=== PATIENT | male | born 1995 | race Two or more races ===

== ENCOUNTER 2018-06-09 17:36 | Emergency (ER) | payer MEDICAID ==
[~2018-06-09] VITALS: Ht 185.4 cm; Wt 131.5 kg
[2018-06-09 17:55] VITALS: BP 133/77
[2018-06-09] MEDS ORDERED: Tetanus/Diptheria/Pertussis Vaccine 0.5ml Syr IM ONE (18:30)
[2018-06-09] MEDS ORDERED: CEPHALEXIN500 MG ORAL (18:44)
--- NOTE | 2018-06-09 18:44 | Emergency Room Report ---
History of Present Illness General Chief Complaint: Laceration Source: Patient Present Illness HPI 22-year-old male presents to the emergency department complaining of laceration to the right forearm sustained by box lidder early this morning. Patient reports that he has not had any bleeding since injurious occurred. Patient reports he is up-to-date with his tetanus vaccination he denies pain at this time. Patient denies SI or suicidal attempt. Patient denies taking blood thinning medications. He reports that he is left-hand dominant. Denies paresthesias or loss of gross motor movements of the affected extremity Allergies: Coded Allergies: No Known Allergies (Unverified , 03/30/12) Patient History Past Medical History: see triage record Past Surgical History: none Pertinent Family History: none Immunizations: UTD Reviewed Nursing Documentation: PMH: Agreed; PSxH: Agreed Nursing Documentation-PMH Past Medical History: No Stated History Review of Systems All Other Systems: negative except mentioned in HPI Physical Exam Vital Signs Date Time Temp Pulse Resp B/P (MAP) Pulse Ox O2 Delivery O2 Flow Rate FiO2 06/09/18 17:52 98.4 104 18 133/77 96 Room Air Sp02 EP Interpretation: reviewed, normal General Appearance: no apparent distress, alert, GCS 15, non-toxic Head: normocephalic, atraumatic Eyes: bilateral eye normal inspection, bilateral eye PERRL ENT: hearing grossly normal, normal voice Neck: full range of motion Respiratory: lungs clear, normal breath sounds, speaking full sentences Cardiovascular #1: regular rate, rhythm, normal capillary refill Cardiovascular #2: 2+ radial (R) Musculoskeletal: back normal, gait/station normal, normal range of motion, non- tender Neurologic: alert, oriented x3, responsive, motor strength/tone normal, sensory intact, speech normal, grossly normal Psychiatric: judgement/insight normal, no suicidal/homicidal ideation Skin: normal color, no rash, warm/dry, well hydrated, laceration - lateral right forearm laceration approx 3 cm in length mostly superficial, not bleeding at this time, no visible fb. Procedures Laceration/Wound Repair Laceration/Wound Repair : Consent: Verbal Wound Location: upper extremity - right forearm Wound's Depth, Shape: linear Wound Length (cm): 3 Wound Explored: clean Irrigated w/ Saline (ccs): 500 Wound Repaired With: Dermabond Layer Closure?: No Sterile Dressing Applied?: No Splint Applied?: No Sling Applied?: No Patient Tolerated: Well Complications: None Medical Decision Making PA Attestation Dr. Melton is my supervising Physician whom patient management has been discussed with. Diagnostic Impression: Primary Impression: Laceration ER Course 22-year-old male presents to the emergency department complaining of laceration to the right forearm sustained by box lidder early this morning. Patient reports that he has not had any bleeding since injurious occurred. Patient reports he is up-to-date with his tetanus vaccination he denies pain at this time. Patient denies SI or suicidal attempt. Patient denies taking blood thinning medications. He reports that he is left-hand dominant. Denies paresthesias or loss of gross motor movements of the affected extremity Ddx considered but are not limited to laceration, tendon injury, cellulitis, amputation Vital signs: are WNL, pt. is afebrile H&PE are most consistent with: lateral right forearm laceration approx 3 cm in length mostly superficial, not bleeding at this time, no visible fb. ORDERS: none required at this time, the diagnosis is clinical ED INTERVENTIONS: - The wound was copiously irrigated with normal saline, and explored for foreign body for which no FB was found. - The wound was approximated and closed using derma-parmar Discussed with patient: That we make every effort to approximate the laceration as best as we can so that scarring will be as cosmetically pleasing as possible with our limited cosmetic skill set in the Emergency dept. Regardless of our best efforts there will be scarring after laceration repair. The extent of scarring is unknown at this time. DISCHARGE: At this time pt. is stable for d/c to home. Will provide printed patient care instructions, and any necessary prescriptions. Care plan and follow up instructions have been discussed with the patient prior to discharge. Last Vital Signs Date Time Temp Pulse Resp B/P (MAP) Pulse Ox O2 Delivery O2 Flow Rate FiO2 06/09/18 17:52 98.4 104 18 133/77 96 Room Air Disposition: HOME, SELF-CARE Condition: Stable Scripts Cephalexin* (KEFLEX*) 500 Mg Capsule 500 MG ORAL EVERY 12 HOURS for 7 Days, #14 CAP 0 Refills Prov: Sunita Santos 06/09/18 Patient Instructions: Nonsutured Laceration Care Additional Instructions: Take medications as directed. Follow up with a Primary Care Provider in 3-5 days, even if your symptoms have resolved. --Please review list of primary care clinics, if you do not already have a primary care provider Return sooner to ED if new symptoms occur, or current symptoms become worse. - Please note that this Emergency Department Report was dictated using [employer] surveyor technology software, occasionally this can lead to erroneous entry secondary to interpretation by the dictation equipment. Sunita Santos Jun 09, 2018 18:44
[2018-06-09 19:20] VITALS: BP 128/78
[2018-06-09 19:21] VITALS: BP 133/77
== END 2018-06-09 19:22 | disposition home or self-care (01) ==
LOC: EMR 18:30
DX: S51.811A Laceration without foreign body of right forearm, initial encounter (principal); W27.5XXA Contact with paper-cutter, initial encounter; Y92.9 Unspecified place or not applicable; Z23 Encounter for immunization
CPT/HCPCS: 12002; 90471; 90715; 99283; Z7502